=== PATIENT | female | born 1990 | race Caucasian/White ===

== ENCOUNTER 2025-10-02 08:26 | Emergency (ER) | payer OTHER, SELFPAY ==
--- OUTSIDE RECORDS SUMMARY | 2025-07-07 11:30 | XMS_ITS ---
[facility] [address] [place] [address] Care Team Providers Care Hand Scraper Name Role Phone Mary Mccullough Primary Care Provider Enzo Cabrera [phone] REASON FOR VISIT FILLING Encounters Encounter Location Date Provider Diagnosis [facility] Marie [address] [place] [address] 07/07/2025 Enzo Cabrera Plan Of Treatment Next Appt Details Provider Name:Jose Nievse, 0 12/19/2025 03:55:00 PM, [address] [place], [address], Progress Notes * TERRY REGAN EDOB:[birth year] (35 yo F)Acc No.[id number]:07/07/2025 Patient:?TERRY REGAN :?Enzo Cabrera DDSDOB:1990???Age:34 Y ???Sex:FemaleDate:07/07/2025Phone:[phone]:[address] [place], [place]-[address]Pcp:Mary Ramírez Subjective: * Chief Complaints: * F ILLING * Electronic signature of Enzo Cabrera DDS on 10/02/2025 at 09:10 AM ESTSign off status: Pending * Provider: Shara Cabrera DDS Date: 0 07/07/2025 Generated for Printing/Faxing/eTransmitting on:?10/02/2025 09:10 AM EST
--- OUTSIDE RECORDS SUMMARY | 2025-08-02 09:40 | XMS_ITS ---
Author Organization [facility] Address [address] [place] [address] Care Team Providers Care Cisco Network Engineer Name Role Phone Abdiel Mccullough Primary Care Provider Enzo Cabrera Unavailable [phone] REASON FOR VISIT EXT Encounters Encounter Location Date Provider Diagnosis [facility] Marie [address] [place] [address] 08/02/2025 Abdiel Fuentes Plan Of Treatment Next Appt Details Provider Name:Jose Nieves, 0 12/19/2025 03:55:00 PM, [address] [place], [address], Progress Notes * TERRY REGAN EDOB:[birth year] (35 yo F)Acc No.[id number]:08/02/2025 Patient:?TERRY REGAN :?ABDIEL FUENTES DDSDOB:1990???Age: 35 Y???Sex:FemaleDate:08/02/2025Phone:[phone]:[address] [place], [place]-[address] Subjective: * Chief Complaints: * E XT * Electronic signature of Abdiel Fuentes DDS on 10/02/2025 at 09:10 AM ESTSign off status: Pending * Provider: Lou FUENTES DDS Date: 1 Generated for Printing/Faxing/eTransmitting on:?10/02/2025 09:10 AM EST
[2025-10-02 08:32] VITALS: BP 188/118; PULSE 110; TEMP 36.9; O2SAT 99; BMI 40.2
[2025-10-02 08:40] VITALS: BP 160/100
[2025-10-02] MEDS: DIPHTH,PERTUSS(ACELL),TET VAC 0.5 ML SYRINGE IM (08:45)
--- NOTE | 2025-10-02 09:04 | ED.GENADUL1 ---
HPI HPI - General Adult General Chief complaint: Wound/Laceration Stated complaint: C LACERATION R LEG Time Seen by Provider: 10/02/25 08:28 Source: patient Mode of arrival: walk-in History of Present Illness HPI narrative: 35-year-old female presenting for laceration to her right ankle. This was sustained at work just before coming into the emergency department when a pallet truck rolled and hit her in the ankle. It has been more than 10 years since her last tetanus shot. No other injury was sustained. She has been ambulatory. Related Data Home Medications ?Medication ?Instructions ?Recorded ?Confirmed cholecalciferol (vitamin D3) 25 25 mcg PO DAILY 10/02/25 10/02/25 mcg (1,000 unit) capsule (Vitamin D3) ferrous sulfate 325 mg (65 mg 325 mg PO DAILY 10/02/25 10/02/25 iron) tablet (Feosol) Allergies Allergy/AdvReac Type Severity Reaction Status Date / Time No Known Drug Allergies Allergy Verified 10/02/25 08:31 Opioid HPI Opioid Management Most Recent Opioid Data: Last Pain Scale 5 Today, 08:32 Review of Systems ROS Narrative A ten point review of systems is negative except as noted above. PFSH PFSH Social History Little interest or pleasure in doing things: not at all Feeling down, depressed, or hopeless: not at all Exam Narrative Exam Narrative: Nurses note and vital signs reviewed General:The patient appears well and in no apparent distress.Patient is resting comfortably on cart. Skin:Warm, dry, no pallor noted.There is no rash noted. Head:Normocephalic, atraumatic Eye: Normal conjunctiva, no drainage Ears, Nose, Mouth, and Throat: oral mucosa is moist. Nares patent. Cardiovascular:Regular Rate and Rhythm Respiratory:Patient is in no distress, no accessory muscle use, lungs are clear to auscultation, no wheezing, rales or rhonchi Back:non-tender GI: Soft and nontender Musculoskeletal: 4 cm linear laceration present at the medial aspect of the right ankle. No active bleeding. No other wounds are present. Neurological:A&O, normal speech Psychiatric:Cooperative Constitutional Vital Signs, click to edit/add: Last Vital Signs Temp 98.4 F 10/02/25 08:32 Pulse 110 H 10/02/25 08:32 Resp 18 10/02/25 08:32 BP 160/100 H 10/02/25 08:40 Pulse Ox 99 10/02/25 08:32 O2 Del Method Room Air 10/02/25 08:32 Course Vital Signs Vital signs: Vital Signs Temperature 98.4 F 10/02/25 08:32 Pulse Rate 110 H 10/02/25 08:32 Respiratory Rate 18 10/02/25 08:32 Blood Pressure 188/118 H 10/02/25 08:32 Pulse Oximetry 99 10/02/25 08:32 Oxygen Delivery Method Room Air 10/02/25 08:32 Temperature 98.4 F 10/02/25 08:32 Pulse Rate 110 H 10/02/25 08:32 Respiratory Rate 18 10/02/25 08:32 Blood Pressure 160/100 H 10/02/25 08:40 Pulse Oximetry 99 10/02/25 08:32 Oxygen Delivery Method Room Air 10/02/25 08:32 Medical Decision Making MDM Narrative Medical decision making narrative: The following procedure was performed by me. Local infiltration was carried out with 1% lidocaine without epinephrine resulting in complete skin anesthesia. The area was prepped with Betadine x 3 and draped sterilely and explored for foreign bodies none were found. It was closed with five 4-0 Ethilon sutures resulting in good skin reapproximation and no complications and complete hemostasis. Tetanus status was updated. Sutures to be removed in 7 to 10 days. Differential Diagnosis Differential Diagnosis: Laceration Discharge Plan Discharge Chief Complaint: Wound/Laceration Clinical Impression: Laceration of right ankle Patient Disposition: Home, Self-Care Time of Disposition Decision: 09:03 Condition: Good Mode of Transportation: Private Vehicle Prescriptions / Home Meds: No Action ferrous sulfate [Feosol] 325 mg (65 mg iron) tablet 325 mg PO DAILY cholecalciferol (vitamin D3) [Vitamin D3] 25 mcg (1,000 unit) capsule 25 mcg PO DAILY Print Language: [place] Instructions: Laceration (ED) Additional Instructions: Sutures to be removed in 7 to 10 days. Referrals: Angela Castañeda MD [Primary Care Provider, Family Practice] - 1 week
--- OUTSIDE RECORDS SUMMARY | 2025-10-02 09:10 | XMS_ITS | Patient Health Record ---
Author Organization [facility] Address [address] [place] [address] Care Team Providers Care Clinical Research Assistant Name Role Phone Mary Mccullough Primary Care Provider Enzo Cabrera Unavailable [phone] Maral Lovell Unavailable [phone] Reason For Referral No Information Medications Medication SIG (Take, Route, Frequency, Duration) Notes Start Date End Date Status Tylenol Active Encounters Encounter Location Date Provider Diagnosis [address] [place] [address] 02/20/2025 Maral Lovell Acute gingivitis, plaque induced K05.00 [address] [place] [address] 11/22/2024 Mary Ramírez Dental caries on pit and fissure surface penetrating into dentin K02.52 [facility] [address] [place] [address] 03/16/2025 Mary Ramírez Dental caries on pit and fissure surface penetrating into dentin K02.52 [address] [address] [facility] [place] [place] [address] 07/04/2025 Mary Cates Ramírez Dental caries on pit and fissure surface penetrating into dentin K02.52 Assessments Encounter Date Diagnosis (ICD Code) Assessment Notes Treatment Notes Treatment Clinical Notes Section Notes 11/22/2024 Dental caries on pit and fissure surface penetrating into dentin (ICD-10 - K02.52) 5Acute gingivitis, plaque induced (ICD-10 - K05.00)03/16/2025Dental caries on pit and fissure surface penetrating into dentin (ICD-10 - K02.52) 07/04/2025Dental caries on pit and fissure surface penetrating into dentin (ICD- 10 - K02.52) Plan Of Treatment Next Appt Details Provider Name:Jose Nieves, 0 12/19/2025 03:55:00 PM, [address] [place], [address], Insurance Providers Payer Name Payer Address Payer Phone Subscriber Number Group Number Insured Name Patient Relationship to Insured Coverage Start Date Coverage End Date [employer] DQ Terminate d [address] [place] [phone] [id number] TERRY REGAN Self - patient is the insured 3 4 DENTAL PRINCIPAL [address] [address] [place] [address] [id number] Ashok REGAN - patient is the [id number] 2025Dental Wrap [employer] BC[employer] Termed [address] [place] [id number] Ashok REGAN - patient is the
--- OUTSIDE RECORDS SUMMARY | 2025-10-02 09:11 | XMS_ITS | Patient Health Record ---
Author Organization [facility] [place] Address [address] [place] [address] Care Team Providers Care Medical Service Representative Name Role Phone Angela Castañeda MD Primary Care Provider Unavailab le Allergies No Known Allergies Reason For Referral No Information Medications Medication SIG (Take, Route, Frequency, Duration) Notes Start Date End Date Status Benzonatate 200 MG 1 capsule Orally Three times a day; Duration: 30 day(s) ActiveTylenol 325 MG1 tablet as needed Orally every 4 hrsActiveAzithromycin 250 MGas directed OrallyActiveAspirin 325 MG1 tablet Orally Once a day; Duration: 30 day(s)ActiveSynthroid 88 MCG1 tablet in the morning on an empty stomach Orally Once a day; Duration: 30 day(s)Active Social History Tobacco Use: Social History Observation Description Date Details (start date - stop date) Current Smoker NA - NA Tobacco Use/Smoking Question Answer Notes Patient is a current smoker Problems Problem Type SNOMED Code ICD Code Onset Dates Problem Status W/U Status Risk Notes Problem Viral enteritis (21420294) Other viral en teritis (A08.39) ActiveconfirmedProblemNicotine dependence (38710306)Nicotine dependence, cigarettes, with other nicotine-induced disorders (F17.218)Activeconfirmed ProblemChronic sinusitis (32500593)Chronic sinusitis, unspecified (J32.9)Active confirmedProblemSecondary amenorrhea (213818957)Secondary amenorrhea (N91.1) ActiveconfirmedProblemAmenorrhea (46823968)Amenorrhea, unspecified (N91.2)Active confirmedProblemDepression (148263583)Depression (F32.9)ActiveconfirmedProblem Tarsal coalition (52503577)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)ActiveconfirmedProblem Hypothyroidism (39562597)Hypothyroidism, unspecified type (E03.9)Activeconfirmed ProblemLocalized, primary osteoarthritis of the ankle and/or foot (024807578) Arthritis of foot, left (M19.072)ActiveconfirmedProblemIron deficiency anemia (02688589)Chronic iron deficiency anemia (D50.9)ActiveconfirmedProblemTibialis tendinitis (29118831)Posterior tibial tendon dysfunction (PTTD) of left lower extremity (M76.822)Activeconfirmed Plan Of Treatment No Information Insurance Providers Payer Name Payer Address Payer Phone Subscriber Number Group Number Insured Name Patient Relationship to Insured Coverage Start Date Coverage End Date [employer] [place] [employer] [address] [address] [place] [address] [id number] Abigail Nieto - patient is the [id number] 2022 Medical (General) History Medical History History ICD Code Amenorrhea, unspecified N91.2 Other viral enteritis A08.39 Chronic iron deficiency anemia D50.9 Secondary amenorrhea N91.1 Nicotine dependence, cigarettes, with ot her nicotine-induced disorders F17.218 Anemia, unspecified type D64.9 Other fatigue R53.83 Hypothyroidism, unspecified type E03.9 Bacterial conjunctivitis H10.9 Other acute nonsuppurative otitis media, left ear H65.192 Depression F32.9 Posterior tibial tendon dysfunction, lef t M76.822 Tarsal coalition Q66.89 Arthritis of foot, left M19.072 Equinus contracture of left ankle M24.57 2 Acquired varus deformity of left foot M2 1.172 Acquired valgus deformity of left foot M 21.072 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 Pain in right foot M79.671 Pain in left foot M79.672 Acquired varus deformity of right foot M 21.171 Acquired valgus deformity of right foot M21.071 Cellulitis of foot, left L03.116 Paronychia of toe of left foot L03.032 Pain in right ankle and joints of right foot M25.571 Pain in left ankle and joints of left fo ot M25.572 Posterior tibial tendon dysfunction (PTT D) of right lower extremity M76.821 Ingrowing nail L60.0 Chronic sinusitis, unspecified J32.9 Other specified bacterial ag ents as the cause of diseases classified elsewhere B96.89 Surgical History Surgery Date(Month/Year) left flatfoot reconstruction(MICHAEL martins, Gastroc recession) 02/01/21
[2025-10-02] MEDS: LIDOCAINE HCL 1% 100 MG/10 ML MDV INJ (09:15)
== END 2025-10-02 09:16 | disposition home or self-care (01) ==
LOC: ER 09:07
PROVIDERS: Emergency Provider Emergency Medicine; PCP Family Medicine
DX: S91.011A Laceration without foreign body, right ankle, initial encounter (principal); W22.8XXA Striking against or struck by other objects, initial encounter; Y92.63 Factory as the place of occurrence of the external cause; Z23 Encounter for immunization
CPT/HCPCS: 12002; 90471; 90715; 99284